=== PATIENT | male | born 1955 ===

== ENCOUNTER 2018-05-06 10:47 | Emergency (ER) | payer MEDICARE, OTHER ==
[2018-05-06 10:47] VITALS: BMI 29.0
[2018-05-06 11:36] VITALS: RESP 18; TEMP 98
--- NOTE | 2018-05-06 12:01 | RAD ---
Date of service: 05/06/2018 HISTORY: productive cough COMPARISON: No prior. TECHNIQUE: Chest PA and lateral FINDINGS: LUNGS: No active pulmonary disease. PLEURA: No significant pleural effusion identified. No pneumothorax apparent. CARDIOVASCULAR: No aortic atherosclerotic calcification present. Normal cardiac size. No pulmonary vascular congestion. OSSEOUS STRUCTURES: No significant abnormalities. VISUALIZED UPPER ABDOMEN: Normal. OTHER FINDINGS: None. IMPRESSION: No acute cardiopulmonary disease appreciated.
--- NOTE | 2018-05-06 12:02 | ED PDOC ---
Arrival/HPI - General Chief Complaint: Cough, Cold, Congestion Time Seen by Provider: 05/06/18 11:28 Historian: Patient - History of Present Illness Narrative History of Present Illness (Text): 05/06/18 11:31 62 year old male, with past medical history of hypertension and asthma, presents to the Emergency department complaining of productive cough and rhinorrhea since 5 days. Patient reports cough was initially associated with clear phlegm, which has now turned into greenish color. Patient states visiting his PMD with the presented symptoms this morning, however, due to long wait time at the office, he decided to come to the ED instead. Patient informs he needs to catch a plane to [facility] today and wants to be medically cleared before his trip. Patient denies any other associated somatic complaints. Patient denies any fever, chills, nausea, vomiting, diarrhea, abdominal pain, chest pain, shortness of breath, headache, dizziness or any other complaints. PMD: Dr. Hart Time/Duration: < week Symptom Onset: Gradual Symptom Course: Unchanged Activities at Onset: Light Context: Home Past Medical History - Provider Review Nursing Documentation Reviewed: Yes - Infectious Disease Hx of Infectious Diseases: None - Tetanus Immunization Tetanus Immunization: Up to Date - Cardiac Hx Cardiac Disorders: Yes Hx Hypertension: Yes - Pulmonary Hx Asthma: Yes - Neurological Hx Neurological Disorder: No - HEENT Hx HEENT Disorder: No - Renal Hx Renal Disorder: No - Endocrine/Metabolic Hx Endocrine Disorders: No - Hematological/Oncological Hx Blood Disorders: No - Integumentary Hx Dermatological Disorder: No - Musculoskeletal/Rheumatological Hx Herniated Disk: Yes - Gastrointestinal Hx Gastrointestinal Disorders: Yes Hx Gastroesophageal Reflux: Yes Other/Comment: hernia - Genitourinary/Gynecological Hx Genitourinary Disorders: No - Psychiatric Hx Depression: No Hx Substance Use: No - Surgical History Hx Inguinal Hernia Repair: Yes - Anesthesia Hx Anesthesia: Yes Hx Anesthesia Reactions: No Hx Malignant Hyperthermia: No - Suicidal Assessment Feels Threatened In Home Enviroment: No Family/Social History - Physician Review Nursing Documentation Reviewed: Yes Family/Social History: Unknown Family HX Smoking Status: Former Smoker Hx Alcohol Use: Yes Hx Substance Use: No Hx Substance Use Treatment: No Allergies/Home Meds Allergies/Adverse Reactions: Allergies peanut Allergy (Severe, Verified 05/06/18 11:36) RASH Home Medications: Home Meds Medication Instructions Recorded Confirmed Telmisartan 40 mg PO DAILY 10/20/13 05/06/18 Lisinopril [Zestril] 40 mg PO DAILY 03/03/16 05/06/18 Review of Systems - Review of Systems Constitutional: absent: Fevers ENT: Rhinorrhea Respiratory: Cough. absent: SOB Cardiovascular: absent: Chest Pain, DICKSON Gastrointestinal: absent: Abdominal Pain, Diarrhea, Nausea, Vomiting Genitourinary Male: absent: Dysuria, Urinary Output Changes Musculoskeletal: absent: Back Pain, Neck Pain Skin: absent: Rash Neurological: absent: Headache, Dizziness Endocrine: absent: Polyuria Psychiatric: absent: Anxiety Physical Exam Vital Signs Reviewed: Yes Vital Signs Temp Pulse Resp BP Pulse Ox 05/06/18 11:30 98 F 80 18 127/76 96 Temperature: Afebrile Blood Pressure: Normal Pulse: Regular Respiratory Rate: Normal Appearance: Positive for: Well-Appearing, Non-Toxic, Comfortable Pain Distress: None Mental Status: Positive for: Alert and Oriented X 3 - Systems Exam Head: Present: Atraumatic, Normocephalic Pupils: Present: PERRL Extroacular Muscles: Present: EOMI Conjunctiva: Present: Normal Mouth: Present: Moist Mucous Membranes Neck: Present: Normal Range of Motion Respiratory/Chest: Present: Clear to Auscultation, Good Air Exchange. No: Respiratory Distress, Accessory Muscle Use Cardiovascular: Present: Regular Rate and Rhythm, Normal S1, S2. No: Murmurs Abdomen: No: Tenderness, Distention, Peritoneal Signs Back: Present: Normal Inspection Upper Extremity: Present: Normal Inspection. No: Cyanosis, Edema Lower Extremity: Present: Normal Inspection. No: Edema Neurological: Present: GCS=15, CN II-XII Intact, Speech Normal Skin: Present: Warm, Dry, Normal Color. No: Rashes Psychiatric: Present: Alert, Oriented x 3, Normal Insight, Normal Concentration Medical Decision Making ED Course and Treatment: 05/06/18 11:32 Impression: 62 year old male presents to the Emergency department complaining of cough and rhinorrhea. Plan: -- Benonatate -- Chest X- Ray -- Reassess and disposition Prior Visits: Notes and results from previous visits were reviewed. Progress Notes: 05/06/18 12:00 Chest X- Ray reviewed by radiologist, shows no acute cardiopulmonary disease appreciated. - RAD Interpretation Radiology Orders: 05/06/18 11:31 CHEST TWO VIEWS (PA/LAT) [RAD] Stat Medical Office Receptionist: Radiologist - Medication Orders Current Medication Orders: Discontinued Medications Benzonatate (Tessalon Perles) 100 mg PO STAT STA Stop: 05/06/18 11:33 Last Admin: 05/06/18 11:41 Dose: 100 mg - Scribe Statement The provider has reviewed the documentation as recorded by the Scribe Essence Haji. All medical record entries made by the Trishibe were at my direction and personally dictated by me. I have reviewed the chart and agree that the record accurately reflects my personal performance of the history, physical exam, medical decision making, and the department course for this patient. I have also personally directed, reviewed, and agree with the discharge instructions and disposition. Disposition/Present on Arrival - Present on Arrival Any Indicators Present on Arrival: No History of DVT/PE: No History of Uncontrolled Diabetes: No Urinary Catheter: No History of Decub. Ulcer: No History Surgical Site Infection Following: None - Disposition Have Diagnosis and Disposition been Completed?: Yes Diagnosis: Cough, Upper respiratory infection Disposition: HOME/ ROUTINE Disposition Time: 12:07 Patient Plan: Discharge Patient Problems: Current Active Problems Problem Status Onset Cough Acute Condition: GOOD Discharge Instructions (ExitCare): Cough in Adults Additional Instructions: Follow-up with PMD within 2 days. Return to ED if condition worsens. Take medication for cough Prescriptions: Benzonatate [Tessalon Perles] 100 mg PO TID PRN #[id number] sgl PRN Reason: Cough Referrals: Tanner Barragan MD [Primary Care Provider] - Follow up with primary Forms: [employer] (Hungarian)
[2018-05-07 00:22] VITALS: BP 118/72; PULSE 72; O2SAT 98
== END 2018-05-06 12:15 | disposition home or self-care (01) ==
LOC: ED 10:47
DX: J06.9 Acute upper respiratory infection, unspecified (principal); Z87.891 Personal history of nicotine dependence